=== PATIENT | female | born 1995 | race Caucasian/White ===

== ENCOUNTER 2019-07-21 17:49 | Emergency (ER) | payer OTHER, SELFPAY ==
[2019-07-21 18:12] VITALS: BP 125/63; PULSE 97; RESP 20; TEMP 37.2; O2SAT 98
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
== END 2019-07-21 18:41 | disposition home or self-care (01) ==
PROVIDERS: Emergency Provider Nurse Practitioner
DX: S39.012A Strain of muscle, fascia and tendon of lower back, initial encounter (principal); X58.XXXA Exposure to other specified factors, initial encounter
CPT/HCPCS: 99212; G0463

== ENCOUNTER 2020-06-23 17:03 | Emergency (ER) | payer OTHER, MEDICAID, SELFPAY ==
[2020-06-23 17:15] VITALS: BP 149/82; PULSE 92; RESP 20; TEMP 37; O2SAT 98
--- NOTE | 2020-06-23 17:45 | ED.ABDPAIN ---
HPI - Abdominal Pain General Chief Complaint: Abdominal Pain Stated Complaint: diahhrea and abdominal cramping Time Seen by Provider: 06/23/20 17:31 Source: patient and RN notes reviewed Mode of arrival: ambulatory Limitations: no limitations and clinical condition History of Present Illness HPI narrative: Patient presents today complaining of 3-day history of diarrhea and abdominal cramping. Denies any suspicious food intake. No one else in her home is ill. Reports nausea and abdominal cramping after eating or taking any medications. She has tried 2 doses of Imodium without relief. She has been taking Zofran and Reglan, which does provide relief of the nausea. Patient is currently 24 weeks , G3, P0. States that she has at least 10 watery diarrhea stools per day, and has had at least 6 in the past hour prior to arrival. Denies any blood or mucus in the stools. Patient had an OB appointment on Sunday, just prior to symptoms beginning, and her exam was normal. Patient has had 2 episodes of stool incontinence since symptoms began. History of factor V Leiden, lupus, asthma, tachycardia. She is seen by maternal- medicine at [facility] [place]. She has not spoken to anyone in her OB office since onset of symptoms. Related Data Home Medications Medication Instructions Recorded Confirmed aspirin 81 mg PO DAILY 06/23/20 06/23/20 enoxaparin 40 mg SUBCUT Q48H 06/23/20 06/23/20 magnesium oxide 400 mg PO DAILY 06/23/20 06/23/20 metoclopramide HCl 5 mg PO Q6H PRN 06/23/20 06/23/20 prochlorperazine maleate 10 mg PO QID PRN 06/23/20 06/23/20 riboflavin (vitamin B2) 400 mg PO DAILY 06/23/20 06/23/20 Allergies Allergy/AdvReac Type Severity Reaction Status Date / Time amoxicillin Allergy Intermediate Hives Verified 06/23/20 17:33 bupropion [From Wellbutrin] Allergy Irritable Verified 06/23/20 17:33 Review of Systems Review of Systems: Narrative: CONSTITUTIONAL: Denies body aches, fever, chills, or sweats. EYES: Denies visual changes, redness, or discharge. ENT: Denies rhinorrhea, congestion, sore throat, or otalgia. CARDIOVASCULAR: Denies chest pain, palpitations, or edema. RESPIRATORY: Denies cough or dyspnea. GASTROINTESTINAL: Denies abdominal pain, vomiting. + Abdominal cramping, diarrhea, nausea GENITOURINARY: Denies dysuria or hematuria. SKIN: Denies rash, itching, or wounds. MUSCULOSKELETAL: Denies back pain, joint pain, or myalgia. NEUROLOGIC: Denies headache, numbness, tingling, or weakness. PSYCH: Denies depression or anxiety. [facility] Past Medical History Medical History (Updated 06/23/20 @ 18:51 by Francine Hancock, [facility], ) Asthma Factor V Leiden Fibromyalgia History of miscarriage History of stillbirth Lupus Tachycardia Family History Family History Other No active medical problems Social History Social History (Updated 07/21/19 @ 18:36 by Keila Estrada CNP) Smoking status: Never smoker Alcohol intake: current Exam Narrative: Exam Narrative: GENERAL: Well-appearing, well-nourished, and in no acute distress. HEAD: Normocephalic, atraumatic. EYES: EOMI. No redness or drainage. Conjunctivae normal. ENT: Mucous membranes pink and moist. Throat normal. Uvula midline. NECK: Normal AROM. Supple. No lymphadenopathy. CHEST: No respiratory distress. Clear to auscultation. HEART: Regular rate and rhythm. No murmur appreciated. Normal peripheral pulses. ABDOMEN: Soft, nontender, nondistended, normal active bowel sounds. EXTREMITIES: Normal range of motion. No edema. SKIN: Warm, dry, no rash. Capillary refill normal. Normal skin turgor. NEURO: No focal deficits. Alert and oriented x3. Gait steady. PSYCH: Normal affect. No signs of depression or anxiety. Course Course Emergency Course: 174- Paged Maternal Medicine for consult. Will wait for call back. Plan discussed with patient and she agrees. 329-Discussed marlin
== END 2020-06-23 18:52 | disposition short-term general hospital (02) ==
PROVIDERS: Emergency Provider Nurse Practitioner
DX: O26.892 Other specified pregnancy related conditions, second trimester (principal); R10.9 Unspecified abdominal pain; R19.7 Diarrhea, unspecified; Z3A.24 24 weeks gestation of pregnancy; O99.512 Diseases of the respiratory system complicating pregnancy, second trimester; J45.909 Unspecified asthma, uncomplicated; O99.891 Other specified diseases and conditions complicating pregnancy; M79.7 Fibromyalgia; O99.112 Other diseases of the blood and blood-forming organs and certain disorders involving the immune mechanism complicating pregnancy, second trimester; M32.9 Systemic lupus erythematosus, unspecified; D68.51 Activated protein C resistance
CPT/HCPCS: 99212; G0463

== ENCOUNTER 2021-02-04 08:49 | Emergency (ER) | payer OTHER, SELFPAY ==
[2021-02-04 09:00] VITALS: BP 126/88; PULSE 99; RESP 14; TEMP 37.1; O2SAT 98
--- NOTE | 2021-02-04 09:31 | ED.FEMALEGU ---
HPI - Female Genitourinary General Chief complaint: Urogenital-Female Stated complaint: sharp pain in right side Time Seen by Provider: 02/04/21 09:13 Source: patient and RN notes reviewed Mode of arrival: ambulatory Limitations: no limitations History of Present Illness HPI Narrative: Patient presents today complaining of 3-day history of right side pain radiating to the right lower quadrant with nausea, dysuria, decreased urine output and decreased urinary frequency. She does report a fever up to 100 last night, but none today. She has not taken any [id number] medication for symptoms prior to arrival. MD elicited complaint: dysuria Related Data Home Medications Medication Instructions Recorded Confirmed noreth-ethinyl estradiol-iron 1 tablet PO DAILY 02/04/21 02/04/21 Allergies Allergy/AdvReac Type Severity Reaction Status Date / Time amoxicillin Allergy Intermediate Hives Verified 06/23/20 17:33 bupropion [From Wellbutrin] Allergy Irritable Verified 06/23/20 17:33 Penicillins Allergy Unknown Verified 02/04/21 09:11 Review of Systems Review of Systems: CONSTITUTIONAL: Denies body aches, fever, chills, or sweats. EYES: Denies visual changes, redness, or discharge. ENT: Denies rhinorrhea, congestion, sore throat, or otalgia. CARDIOVASCULAR: Denies chest pain, palpitations, or edema. RESPIRATORY: Denies cough or dyspnea. GASTROINTESTINAL: Denies vomiting, or diarrhea.+ Abdominal pain, nausea GENITOURINARY: Denies hematuria.+ Dysuria, decreased urinary frequency and urinary output SKIN: Denies rash, itching, or wounds. MUSCULOSKELETAL: Denies back pain, joint pain, or myalgia. NEUROLOGIC: Denies headache, numbness, tingling, or weakness. PSYCH: Denies depression or anxiety. [facility] Past Medical History Medical History (Updated 02/04/21 @ 09:35 by Francine Hancock, HANH, KEITH) Asthma Factor V Leiden Fibromyalgia History of miscarriage History of stillbirth Lupus anticoagulant disorder Tachycardia Family History Family History Other No active medical problems Social History Social History Smoking status: Never smoker Alcohol intake: current Comments At time of signature, I have reviewed and agree with nursing past medical, surgical, social and family history unless otherwise noted. Please see nursing chart for further information. There is no relevant family history pertinent to the presenting complaint Exam Narrative: GENERAL: Well-appearing, well-nourished, and in no acute distress. HEAD: Normocephalic, atraumatic. EYES: EOMI. No redness or drainage. Conjunctivae normal. ENT: Mucous membranes pink and moist. NECK: Normal AROM. Supple. No lymphadenopathy. CHEST: No respiratory distress. Clear to auscultation. HEART: Regular rate and rhythm. No murmur appreciated. Normal peripheral pulses. ABDOMEN: Soft, nondistended, normal active bowel sounds. + Tender to the suprapubic area in the right lower quadrant without rebound or guarding.-CVAT MUSCULOSKELETAL: No bony tenderness. EXTREMITIES: Normal range of motion. No edema. SKIN: Warm, dry, no rash. Capillary refill normal. Normal skin turgor. NEURO: No focal deficits. Alert and oriented x3. Gait steady. PSYCH: Normal affect. No signs of depression or anxiety. Course Course Emergency Course: UTI versus appendicitis. Due to patient's symptoms along with her trace leukocytes, I will go ahead and treat her with antibiotics. Patient understands that her exam findings could also be suspicious for appendicitis. She understands that if her symptoms do not improve in the next 24 to 48 hours she needs to go to the ER for further evaluation. Vital Signs Vital signs: Vital Signs Temperature 98.8 F 02/04/21 09:00 Pulse Rate 99 02/04/21 09:00 Respiratory Rate 14 02/04/21 09:00 Blood Pressure 126/88 02/04/21
== END 2021-02-04 09:46 | disposition home or self-care (01) ==
PROVIDERS: Emergency Provider Nurse Practitioner
DX: N30.00 Acute cystitis without hematuria (principal); J45.909 Unspecified asthma, uncomplicated; M79.7 Fibromyalgia; D68.62 Lupus anticoagulant syndrome
CPT/HCPCS: 81003; 87077; 87086; 87088; 99213; G0463

== ENCOUNTER 2021-04-05 12:41 | Emergency (ER) | payer OTHER, SELFPAY ==
[2021-04-05 12:46] VITALS: BP 116/78; PULSE 112; RESP 14; TEMP 37.2; O2SAT 100
[2021-04-05 12:56] VITALS: BP 116/78; PULSE 112; RESP 14; TEMP 37.2; O2SAT 100
--- NOTE | 2021-04-05 12:59 | ED.FEMALEGU ---
HPI - Female Genitourinary General Chief complaint: Urogenital-Female Stated complaint: poss uti x 2 months Time Seen by Provider: 04/05/21 12:50 Source: patient and RN notes reviewed History of Present Illness HPI Narrative: Patient is a 25-year-old female who presents the urgent care with complaints of a possible UTI. Patient states that since January she has had off-and-on symptoms of low-grade fever, back pain, urgency and dribbling. Patient states she has been on Macrobid twice since January with her last dose being in November. Patient denies any blood in the urine. Denies of any abdominal pain, nausea or vomiting. Patient has not followed up with a PCP. No other acute complaints. No acute distress noted. Patient aware of the plan of care. Some parts of this dictation were generated by voice recognition software and may contain typographical and/or grammatical inaccuracies. Related Data Home Medications Medication Instructions Recorded Confirmed noreth-ethinyl estradiol-iron 1 tablet PO DAILY 02/04/21 04/05/21 Allergies Allergy/AdvReac Type Severity Reaction Status Date / Time amoxicillin Allergy Intermediate Hives Verified 04/05/21 12:56 bupropion [From Wellbutrin] Allergy Irritable Verified 04/05/21 12:56 Penicillins Allergy Unknown Verified 04/05/21 12:56 Review of Systems Review of Systems: CONSTITUTIONAL: Reports of intermittent low-grade fevers EYES: Denies visual changes, redness, or discharge. ENT: Denies rhinorrhea, congestion, sore throat, or otalgia. CARDIOVASCULAR: Denies chest pain, palpitations, or edema. RESPIRATORY: Denies cough or dyspnea. GASTROINTESTINAL: Denies abdominal pain, nausea, vomiting, or diarrhea. GENITOURINARY: Reports of urinary urgency and dribbling SKIN: Denies rash or itching. MUSCULOSKELETAL: Reports of intermittent low back pain NEUROLOGIC: Denies headache, numbness, or weakness. All other systems reviewed are negative, except as documented in HPI. [facility] Past Medical History Medical History (Updated 04/05/21 @ 13:14 by HANH Phillips) Asthma Factor V Leiden Fibromyalgia History of miscarriage History of stillbirth Lupus anticoagulant disorder Tachycardia Family History Family History Other No active medical problems Social History Social History Smoking status: Never smoker Alcohol intake: current Comments At the time of my signature, I reviewed and agree with the nursing past medical, surgical, social, and family history. There is no relevant family history pertinent to the patient complaint. Exam Narrative: GENERAL: This is a well-nourished, well-developed patient, in no apparent distress. HEAD: normocephalic, atraumatic. EYES: PERRL. Sclera clear/white. Vision is grossly intact. EARS: External ears normal NOSE: External nose normal with no obvious nasal discharge, nares without redness, no rhinorrhea. THROAT: Mucous membranes moist NECK: Neck supple CARDIOVASCULAR: Regular rate and rhythm without murmurs, gallops, or rubs. RESPIRATORY: Clear to auscultation. Breath sounds equal bilaterally. No wheezes, rales, or rhonchi. GASTROINTESTINAL: Abdomen soft, non-tender, nondistended. Bowel sounds are active. SKIN: warm, intact with no suspicious lesions or rash, good texture and turgor. NEURO: awake, alert, and oriented to person, place and time. There were no obvious focal neurologic abnormalities. EXTREMITIES: No clubbing, cyanosis, or edema. BACK: Mild bilateral CVA tenderness Course Course Level of Care: Express Care Visit Vital Signs Vital signs: Vital Signs Temperature 99 F 04/05/21 12:46 Pulse Rate 112 H 04/05/21 12:46 Respiratory Rate 14 04/05/21 12:46 Blood Pressure 116/78 04/05/21 12:46 Pulse Oximetry 100 04/05/21 12:46 Temperature 99 F 04/05/21 12:56 Pulse Rate 112 H
== END 2021-04-05 13:18 | disposition home or self-care (01) ==
PROVIDERS: Emergency Provider Nurse Practitioner Family
DX: N30.10 Interstitial cystitis (chronic) without hematuria (principal); J45.909 Unspecified asthma, uncomplicated; M79.7 Fibromyalgia; D68.51 Activated protein C resistance; M32.9 Systemic lupus erythematosus, unspecified
CPT/HCPCS: 81003; 87086; 99213; G0463

== ENCOUNTER 2021-07-05 13:50 | Emergency (ER) | payer OTHER, SELFPAY ==
--- NOTE | ~2021-07-05 | XR_ITS ---
EXAMINATION: XR foot LT min 3V EXAM DATE: 07/05/2021 14:54 INDICATION: Lt Foot Pain Top Aspect Radiates To Distal Tibfib And Arch, 18 Weeks . TECHNIQUE: Left foot dorsoplantar, lateral and oblique projections obtained and reviewed. There is n o prior study for comparison. FINDINGS: Left metatarsal bones unremarkable. No periosteal reaction or band of sclerosis to sugge st subacute stress fracture. There are no acute fractures or dislocations identified. There is no hamlin bcutaneous gas. The soft tissue is unremarkable. There are no radiopaque foreign bodies. IMPRESSION: 1. Unremarkable left foot exam. Reviewed, dictated and finalized at location A.
[2021-07-05 14:00] VITALS: BP 126/69; PULSE 100; RESP 16; TEMP 37.2; O2SAT 100
--- NOTE | 2021-07-05 14:33 | ED.LOWEXIN ---
HPI - Extremity Injury (Lower) General Chief Complaint: Extremity Injury, Lower Stated Complaint: Left Ankle Pain Time Seen by Provider: 07/05/21 14:33 Source: patient, RN notes reviewed and old records reviewed Mode of arrival: ambulatory Limitations: no limitations History of Present Illness HPI Narrative: 26 year old female who presents to [facility] care with complaints of left foot pain and pain to the arch of her foot for 2 week duration.She had a venous Doppler done at [place] on due to pain which was negative for any DVT Patient is 18 weeks and is under the care at maternal center at [place] due to being high risk due to Factor V, is presently taking daily Lovenox and also 2 baby aspirins daily. She states that pain is at the distal area of lower left leg and into the arch of her foot which is worse with ambulation.pulses strong to left foot no redness or any swelling noted.She wants to make sure she doesn't have a stress fracture in her foot. MD complaint: other (no injury pain at base of Tib/Fib and the arch of her foot) Severity: moderate Exacerbating factors: weight bearing Related Data Home Medications Medication Instructions Recorded Confirmed aspirin 81 mg PO BID 07/05/21 07/05/21 enoxaparin [Lovenox] 40 mg SUBCUT DAILY 07/05/21 07/05/21 vit no.[id number] 1 tablet PO DAILY 07/05/21 07/05/21 [Classic ] prochlorperazine maleate 10 mg PO TID PRN 07/05/21 07/05/21 Allergies Allergy/AdvReac Type Severity Reaction Status Date / Time Penicillins Allergy Mild Hives Verified 07/05/21 14:34 Review of Systems Review of Systems: CONSTITUTIONAL: Denies fever, chills, or sweats. EYES: Denies visual changes, redness, or discharge. ENT: Denies rhinorrhea, congestion, sore throat, or otalgia. CARDIOVASCULAR: Denies chest pain, palpitations, or edema. RESPIRATORY: Denies cough or dyspnea. GASTROINTESTINAL: Denies abdominal pain, nausea, vomiting, or diarrhea. GENITOURINARY: Denies dysuria or hematuria. SKIN: Denies rash or itching. MUSCULOSKELETAL: Denies back pain, positive for pain to distal left leg and arch of foot with no injury, no myalgia. NEUROLOGIC: Denies headache, numbness, or weakness. PSYCHIATRIC: Denies anxiety or depression. All systems reviewed & are unremarkable except as noted in HPI and below PMFSH Past Medical History Medical History (Updated 07/06/21 @ 07:51 by Samia Jeffries NP) Factor V Leiden Lupus Surgical History Surgical History (Updated 07/06/21 @ 07:51 by Samia Jeffries NP) [place] teeth extracted Social History Social History (Updated 07/06/21 @ 07:51 by Samia Jeffries NP) Smoking status: Former smoker Tobacco type: e-cigarettes/vaping Alcohol intake: former Alcohol use details: is 18 weeks Substance use: never Living arrangements: with family Gender identity (if verbalized by the patient): Female Comments At time of signature, agree with nursing past medical, surgical, social and family history. There is no relevant family history pertinent to the presenting complaint Exam Narrative: GENERAL: Well-appearing, well-nourished, and in no acute distress. HEAD: Normocephalic, atraumatic. EYES: PERRLA and EOMI. ENT: Nares clear, no rhinorrhea or epistaxis. Mucous membranes moist.TM's normal throat pink with no lesions or exudates or tonsil swelling NECK: Supple.no lymphadenopathy CHEST: Clear to auscultation. No respiratory distress.SAO2 100% on room air HEART: Regular rate and rhythm. No murmur heard. Normal peripheral pulses. ABDOMEN: Soft, nontender, nondistended, normal active bowel sounds. EXTREMITIES: Normal range of motion. No edema.Pain to distal left lower leg and in arch of foot without injury which increases with ambulation, no redness, swelling or any bruising noted.Circulation sensation and mobility is intact SKIN: Warm, dry, no rash. NEURO: No focal deficits. Alert and oriented x3. Course Cou
== END 2021-07-05 15:09 | disposition home or self-care (01) ==
PROVIDERS: Emergency Provider Registered Nurse
DX: O99.891 Other specified diseases and conditions complicating pregnancy (principal); Z3A.18 18 weeks gestation of pregnancy; M79.672 Pain in left foot; O99.112 Other diseases of the blood and blood-forming organs and certain disorders involving the immune mechanism complicating pregnancy, second trimester; Z79.82 Long term (current) use of aspirin
CPT/HCPCS: 73630; 99213; G0463